=== PATIENT | female | born 1980 | race Caucasian/White ===

== ENCOUNTER 2017-02-28 14:48 | Emergency (ER) | payer OTHER ==
[~2017-02-28 14:48] MED LIST: ALPRAZOLAM PO; AUGMENTIN PO; BACTRIM DS TABL1 TA1 PO; BENADRYL25 M1; BENTYL20 MG PO; CIPRO PO; DICYCLOMINE HCL20 MG PO; EC-NAPROSYN500 MG PO; ERYTHROMYCIN OPTH; MACROBID100 MG PO; MOTRIN600 MG PO; PHENERGAN12.5 MG/SU RC; PHENERGAN25 M1 PO; PHENERGAN25 MG PO; PREVACID PO; PYRIDIUM PO; PYRIDIUM100 MG PO; SUDAFED PO; TOPAMAX PO; ULTRAM PO; VOLTAREN75 MG PO; XANAX0.5 MG PO; XANAX1 MG PO; ZITHROMAX PO; [UNRECOGNIZED DRUG - OTHER] PO; [UNRECOGNIZED DRUG - REMARK]
[2017-02-28] MEDS ORDERED: NO MEDICATIONS (14:55)
== END 2017-02-28 16:14 | disposition home or self-care (01) ==
LOC: SED 14:48
DX: H10.32 Unspecified acute conjunctivitis, left eye (principal); F31.9 Bipolar disorder, unspecified; F41.9 Anxiety disorder, unspecified; Z88.0 Allergy status to penicillin
CPT/HCPCS: 99283